=== PATIENT | male | born 1985 | race African-American/Black ===

== ENCOUNTER 2017-11-10 09:24 | Emergency (ER) | payer OTHER ==
[~2017-11-10] VITALS: Ht 188 cm; Wt 104.3 kg
[~2017-11-10 09:24] MED LIST: PERCOCET 325 MG1 TA2 PO
[2017-11-10 09:28] VITALS: BP 182/86
--- NOTE | 2017-11-10 09:28 | ED INFLUENZA/URI COMPLAINT ---
History of Present Illness General Chief Complaint: Wheezing/Asthma Stated Complaint: ?ASTHMA Source: patient, old records Exam Limitations: no limitations Vital Signs & Intake/Output Vital Signs & Intake/Output Vital Signs Date Time Temp Pulse Resp B/P B/P Pulse O2 O2 Flow FiO2 Mean Ox Delivery Rate 11/10 1014 98 Room Air 11/10 0928 98.6 90 18 182/86 97 Room Air Allergies Uncoded Allergies: ENVIRONMENTAL (01/01/13) Reconcile Medications Azithromycin (Zithromax) 250 MG TABLET 1 DP PO AD uri 2 the first day followed by 1 for days 2-5 Methylprednisolone. (Medrol) 4 MG TAB.DS.PK 1 DP PO AD uri 6 on day 1 then reduce by one tablet daily until gone OXYCODONE HCL/ACETAMINOPHEN (Percocet 5-325 MG Tablet) 325 MG/5 MG TAB 1 TAB PO Q4-6 PRN PRN PAIN Triage Nurses Notes Reviewed? yes Onset: Abrupt Duration: day(s): (1), constant Timing: recent history Severity: moderate Severity Numbers: 5 Prior Episodes/Possible Cause: occassional episodes No Modifying Factors: none Associated Symptoms: cough HPI: 32-year-old male nonsmoker history of asthma presents to ER for evaluation complaining of generalized bodyaches nonproductive cough for the past 2 days. No fever chills abdominal pain shortness of breath wheezing. He has not needed to use his inhalers. He is never been admitted to the hospital for his asthma. No chest pain. No sick contacts. (Dequan Higgins) Past History Travel History Traveled to [place] past 21 day No Medical History Any Pertinent Medical History? see below for history Respiratory: asthma Surgical History Surgical History: none Psychosocial History What is your primary language [place] Tobacco Use: Never used Family History Hx Contributory? No (Dequan Higgins) Review of Systems Review of Systems Constitutional: Reports: see HPI. Comments Review of systems: See HPI, All other systems negative. Constitutional, no chills no fever, HEENT: no sore throat no congestion, no ear pain Cardiovascular: No chest pain , no palpitation Skin: no rashes, no change in skin Respiratory: No dyspnea , (+) cough no sputum GI: No nausea no vomiting, no diarrhea, Muscle skeletal: No joint pain, no back pain, no neck pain, Neurologic: , no headache Heme/endocrine: No bruising Immunology: No lymphadenopathy (Dequan Higgins) Physical Exam Physical Exam General Appearance: well developed/nourished, no apparent distress, alert, awake Ears, Nose, Throat: normal ENT inspection, moist mucous membrane Comments: Well-developed well-nourished patient in no apparent distress. Head/Face: Atraumatic, no maxillary/frontal sinus tenderness Eyes: PERRL, EOMI, no conjunctival injection Ear:External auditory canal and Tympanic membranes clear Nose: atraumatic.Normal inspection Throat: Moist mucous membranes.Pharynx normal. No pharyngeal erythema/exudate seen. No stridor/drooling or assymetry. No swelling or edema. Neck: Supple, no lymphadenopathy, FROM Back: FROM Cardiovascular: Regular rate and rhythms no murmur Respiratory: No respiratory distress. Patient speaking in full complete sentences. Breath sounds clear to auscultation bilaterally: NO W/R/R Extremities: full range of motion Neuro: awake, alert, and oriented to person, place and time. There were no obvious focal neurologic abnormalities. Skin: Warm & dry;No appreciable rash on exposed skin Psych: Mood affect normal, normal memory normal judgment. Core Measures Sepsis Present: No Sepsis Focused Exam Completed? No (Dequan Higgins) Progress Differential Diagnosis: influenza, otitis, pneumonia, pharyngitis, sinusitis Plan of Care: Orders Procedure Date/time Status RAPID VIRAL INFLUENZA A 11/10 926 Complete Microbiology 11/10 928 NASOPHARYN: Influenza Virus A & B Rapid Smear - COMP pt speaking in full complete sentences, declining neb tx when offered. I discussed with the patient at length all of their results. I had an extensive conversation regarding need for close follow up with their primary care physician this week as well as return precautions. I answered all of their questions, they feel comfortable with the plan and follow-up care. I discussed with the patient/family the medications that they will receive. I gave them signs and symptoms that could indicate an adverse reaction. I have advised them to limit their activities until they can see how they respond to the medication. Initial ED EKG: none (Dequan Higgins) Departure Departure Time of Disposition: 1009 Disposition: HOME OR SELF CARE Condition: Stable Clinical Impression Primary Impression: Bronchitis Referrals: Patient Has No Primary Care Dr Additional Instructions: Medrol Dosepak as directed. Z-Pedrito as directed. Follow-up with your primary care physician, return anytime sooner with any concerns worsening of her symptoms. Departure Forms: Customer Survey General Discharge Information Prescriptions: Current Visit Scripts Methylprednisolone. (Medrol) 1 DP PO AD #1 DP 6 on day 1 then reduce by one tablet daily until gone Azithromycin (Zithromax) 1 DP PO AD #6 TAB 2 the first day followed by 1 for days 2-5 (Dequan Higgins) PA/[employer]IDENTIAL [facility] SPECIALIST Co-Sign Statement Statement: ED Attending supervision documentation- [] I saw and evaluated the patient. I have also reviewed all the pertinent lab results and diagnostic results. I agree with the findings and the plan of care as documented in the PA's/[employer]IDENTIAL [facility]WN SPECIALIST's documentation. [X] I have reviewed the ED Record and agree with the PA's/[employer]IDENTIAL [employer]WN SPECIALIST's documentation. [] Additions or exceptions (if any) to the PAs/RESIDENTIAL LAWN SPECIALIST's note and plan are summarized below: [] (Nilson OBRIEN,Roney Real)
[2017-11-10] MEDS ORDERED: ZITHROMAX250 M2 PO (10:09)
[2017-11-10] MEDS ORDERED: MEDROL4 M2 PO (10:09)
== END 2017-11-10 10:25 ==
LOC: ERH 09:24
DX: J40 Bronchitis, not specified as acute or chronic (principal)
CPT/HCPCS: 87804; 87804-59